=== PATIENT | female | born 1965 | race African-American/Black ===

== ENCOUNTER → 2018-08-01 | Outpatient (CLI) | payer OTHER ==
--- NOTE | 2018-08-02 09:09 | MM ---
Reason for exam: screening (asymptomatic). Last mammogram was performed 4 years and 11 months ago. History: Family history of breast cancer in mother at age 49. Benign right US cyst aspiration of the right breast, January 26, 2008. Benign US right core biopsy of the right breast, January 26, 2008. Physical Findings: A clinical breast exam by your physician is recommended on an annual basis and results should be correlated with mammographic findings. MG Screening Mammo w CAD Bilateral CC, MLO, and XCCL view(s) were taken. Prior study comparison: August 22, 2013, [facility] DIGITAL LEFT BREAST MAMMOGRAM w/CAD. August 16, 2013, bilateral digital screening mammo w/CAD. The breast tissue is heterogeneously dense. This may lower the sensitivity of mammography. There is no discrete abnormality. No significant changes when compared with prior studies. ASSESSMENT: Negative, BI-RAD 1 RECOMMENDATION: Routine screening mammogram of both breasts in 1 year.
== END | disposition home or self-care (01) ==
LOC: RADMAMWWP 10:53
PROVIDERS: ATTEND Family Medicine
DX: Z12.31 Encounter for screening mammogram for malignant neoplasm of breast (principal)
CPT/HCPCS: 77067

== ENCOUNTER → 2020-10-09 | Outpatient (CLI) | payer OTHER ==
[2020-10-09 14:15] VITALS: BP 134/87; PULSE 82; RESP 16; TEMP 98.1
--- NOTE | 2020-10-09 15:12 | P.PAINCN ---
History of Present Illness - Reason for Consult Consult date: 10/09/20 - History of Present Illness This is an initial consultation visit for this 55 years old female with a chronic history of severe low back pain started more than 5 years ago, the pain intensity increased over time and she reported that the pain localized in the low back area with radiation to the buttock bilaterally more prominent on the right side, slightly tilted to the right thigh area, the pain intensity increased with any activity interfere with the quality of life and activity of daily livings, she tried physical therapy , and medication management, all failed to help her back pain, is currently on NSAID, Lyrica, Ultram , Flexeril, and she continued to have severe pain, she feels some weakness in her right lower extremity, she denies any fever or night sweats which denies any change in the bowel movement or urination, she reported that her pain does not radiate below the knee, Past Medical History Past Medical History: Asthma Additional Past Medical History / Comment(s): lower back pain radiating down rt leg to foot and toes,current steroids History of Any Multi-Drug Resistant Organisms: None Reported Past Surgical History: Hysterectomy Additional Past Surgical History / Comment(s): partial hyst,pain clinic injections Past Anesthesia/Blood Transfusion Reactions: No Reported Reaction Additional Psychological History / Comment(s): claustrophobia Smoking Status: Current some day smoker Past Alcohol Use History: Occasional Additional Past Alcohol Use History / Comment(s): started smoking at age age 32 Past Drug Use History: None Reported - Past Family History Mother Family Medical History: Cancer Medications and Allergies Home Medications Medication Instructions Recorded Confirmed Type Acyclovir 800 mg PO TID PRN 10/08/20 10/08/20 History Albuterol Nebulized [Ventolin 2.5 mg INHALATION TID 10/08/20 10/08/20 History Nebulized] Albuterol Sulfate [Ventolin HFA] 1 - 2 puff INHALATION Q6H PRN 10/08/20 10/08/20 History Artificial Tears-Hypromellose 1 drops BOTH EYES DIRECTED PRN 10/08/20 10/08/20 History [Artificial Tear Drops] Budesonide/Formoterol Fumarate 2 puff INHALATION BID 10/08/20 10/08/20 History [Symbicort 160-4.5 Mcg Inhaler] Chlorhexidine Gluconate [Periogard] 15 ml PO BID 10/08/20 10/08/20 History Cyclobenzaprine HCl 10 mg PO HS PRN 10/08/20 10/08/20 History Famotidine [Pepcid] 20 mg PO BID 10/08/20 10/08/20 History Fluticasone Propionate [Flonase 1 - 2 spray EA NOSTRIL DAILY 10/08/20 10/08/20 History Allergy Relief] Ibuprofen 600 mg PO Q8H PRN 10/08/20 10/08/20 History Indapamide [Lozol] 2.5 mg PO DAILY 10/08/20 10/08/20 History Loratadine [Claritin] 10 mg PO DAILY 10/08/20 10/08/20 History Montelukast Sodium [Singulair] 10 mg PO HS 10/08/20 10/08/20 History Potassium Chloride [Klor-Con 10] 10 meq PO DAILY 10/08/20 10/08/20 History Pregabalin [Lyrica] 75 mg PO TID 10/08/20 10/08/20 History Low Iron 27mg Vitamin 1 tab PO DAILY 10/08/20 10/08/20 History Sodium Chloride [Saline Nasal 1 spray EA NOSTRIL DIRECTED PRN 10/08/20 10/08/20 History [place]] Triamcinolone Acetonide 1 applic TOPICAL BID PRN 10/08/20 10/08/20 History [Triamcinolone Acetonide 0.025%] predniSONE 0 mg PO DIRECTED 10/08/20 10/08/20 History traMADol HCl [Ultram] 50 mg PO Q8H PRN 10/08/20 10/08/20 History Meloxicam [Mobic] 7.5 mg PO BID 10/09/20 10/09/20 History Allergies Allergy/AdvReac Type Severity Reaction Status Date / Time Penicillins Allergy Nausea & Verified 10/07/20 15:53 Vomiting,itching Physical Exam Vitals: Vital Signs Temp Pulse Resp BP Pulse Ox 10/09/20 14:09 98.1 F 82 16 134/87 96 Physical Examinations : -Constitutiona : Cooperative , not in acute distress . -HEENT : nech : supple , no Lymphadenopathy , normal thyroid size . : eyes : no ptosis , no icterus, no photophobia . - neurologic : Cranial nerve II to XII intact , no focal neurological deffecit . -psychatric : alert , oriented X 3 , appropriate affect , intact judgment and insight . -Lymphatic : no Lymphadenopathy . - musculoskeltal : Lumber spine moter stegnth lower extremities ,thigh and legs 5/5 Right side , 5/5 Left side deep tendon reflexes : normal Knee Jerk , normal ankle Jerk lumber facet Loading Test =positive Right , positive Left Range of motion of the lumbar spine Flexion 30 degrees, extension 10 degrees strait leg raising test = positive at 30 degree on the right side, and is negative on the left side Fabere test= positive Right , and positive LT . Sever tenderness over the Sacroiliac joint on the Right , and Left sides Gaenslen test= positive right ,and positive left . Seated flexion test= positive right ,and positive Left . Distraction test= positive bilaterally Results Comments: MRI of the lumbar spine multilevel lumbar degenerative disc disease and multilevel lumbar facet degeneration and bilateral neural foraminal narrowing at L5-S1 Assessment and Plan Plan: Assessment and plan=1-bilateral sacroiliitis. 2-lumbar spondylosis with lumbar facet arthropathy. 3-lumbar degenerative disc disease. 4-lumbar foraminal stenosis at L5-S1. 5-with obesity recommend continue current medication Lyrica 75 mg 3 times a day, Ultram 50 mg every 8 hours when necessary, Flexeril 10 mg daily at bedtime, recommend discontinue Motrin and start patient on Mobic 7.5 mg twice a day. She could benefit from aquatic therapy. Patient could benefit from bilateral sacroiliac joint steroid injection under fluoroscopy guidance In the future patient could benefit from medial branch block and possible RFA Time with Patient: Greater than 30 PQRS Measure Charge Sheet Measure #130: Documentation of Current Meds in Medical Chart: Patient's medications documented in chart Measure #226: Tobacco Use: Screen & Cessation Intervention: Pt screened for tobacco use AND intervention given Measure #111: Pneumonia Vaccination: Pneumococcal vaccine NOT administered or previously given Measure #47: Advance Care Plan: Advance care planning discussed & documented, pt chose/unable to give Measure #412: Opioid Treatment Agreement: No documentation of signed opioid treatment agreement Measure #408: Opioid Therapy Follow-up Evaluation: Patient had NO f/u eval minimum every 3 months during opioid therapy Measure #317: Preventitive Care & Scrn High Bld Press & F/U: Normal blood pressure, f/u not required Measure #128: Body Mass Index (BMI) Screening & Follow-up: BMI documented ABOVE normal parameters - f/u documented Measure #131: Pain Assessment & Follow-up: Pain positive & plan documented, Follow-up scheduled Measure #431: Unhealthy Alcohol Use Preventative Care & Scrn: Patient not ident ified as an unhealthy alcohol user PQRS Narrative: Blood Pressure 134/87 Pain Intensity [Back] 7 Scale Used Numeric (1 - 10) Hx Alcohol Use (MH) Yes Home Medications: Ambulatory Orders Acyclovir 800 mg PO TID PRN 10/08/20 Albuterol Nebulized [Ventolin Nebulized] 2.5 mg INHALATION TID 10/08/20 Albuterol Sulfate [Ventolin HFA] 1 - 2 puff INHALATION Q6H PRN 10/08/20 Artificial Tears-Hypromellose [Artificial Tear Drops] 1 drops BOTH EYES DIRECTED PRN 10/08/20 Budesonide/Formoterol Fumarate [Symbicort 160-4.5 Mcg Inhaler] 2 puff INHALATION BID 10/08/20 Chlorhexidine Gluconate [Periogard] 15 ml PO BID 10/08/20 Cyclobenzaprine HCl 10 mg PO HS PRN 10/08/20 Famotidine [Pepcid] 20 mg PO BID 10/08/20 Fluticasone Propionate [Flonase Allergy Relief] 1 - 2 spray EA NOSTRIL DAILY 10/08/20 Ibuprofen 600 mg PO Q8H PRN 10/08/20 Indapamide [Lozol] 2.5 mg PO DAILY 10/08/20 Loratadine [Claritin] 10 mg PO DAILY 10/08/20 Montelukast Sodium [Singulair] 10 mg PO HS 10/08/20 Potassium Chloride [Klor-Con 10] 10 meq PO DAILY 10/08/20 Pregabalin [Lyrica] 75 mg PO TID 10/08/20 Low Iron 27mg Vitamin 1 tab PO DAILY 10/08/20 Sodium Chloride [Saline Nasal [place]] 1 spray EA NOSTRIL DIRECTED PRN 10/08/20 Triamcinolone Acetonide [Triamcinolone Acetonide 0.025%] 1 applic TOPICAL BID PRN 10/08/20 predniSONE 0 mg PO DIRECTED 10/08/20 traMADol HCl [Ultram] 50 mg PO Q8H PRN 10/08/20 Meloxicam [Mobic] 7.5 mg PO BID 10/09/20
== END ==
LOC: PNWHC3 13:47
PROVIDERS: ATTEND Specialist
DX: M46.1 Sacroiliitis, not elsewhere classified (principal); M47.816 Spondylosis without myelopathy or radiculopathy, lumbar region; M51.36 Other intervertebral disc degeneration, lumbar region; M48.061 Spinal stenosis, lumbar region without neurogenic claudication; E66.9 Obesity, unspecified; J45.909 Unspecified asthma, uncomplicated; F17.200 Nicotine dependence, unspecified, uncomplicated; Z88.0 Allergy status to penicillin; Z79.1 Long term (current) use of non-steroidal anti-inflammatories (NSAID); Z79.51 Long term (current) use of inhaled steroids; Z68.39 Body mass index [BMI] 39.0-39.9, adult
CPT/HCPCS: 99211

== ENCOUNTER 2020-12-03 12:45 | Day surgery (SDC) | payer OTHER ==
[2020-11-29 14:55] VITALS: BMI 40.6
[~2020-12-03 12:45] MED LIST: LACTATED RINGERS 1,000 ML IV SCH
[2020-12-03 13:07] VITALS: TEMP 98.3
[2020-12-03] MEDS ORDERED: ROPIVACAINE 5MG/ML 20ML VIAL ONE (13:30)
[2020-12-03] MEDS ORDERED: MIDAZOLAM 2 MG/2 ML VIAL ONE (13:30)
[2020-12-03] MEDS ORDERED: methylPREDNISolone ACETATE 40 MG/ML 1 ML VIAL ONE (13:30)
[2020-12-03] MEDS ORDERED: fentaNYL (PF) 50 MCG/ML 2 ML AMP ONE (13:30)
--- NOTE | 2020-12-03 13:43 | P.PCN ---
Date of Procedure: 12/03/20 Procedure(s) Performed: Procedure= bilateral sacroiliac joints steroid injection under fluoroscopy guidance (fluoroscopy image stored on file in the radiology Department ) Preoperative diagnosis= 1-bilateral sacroiliitis 2-lumbar degenerative disc disease 3-lumbar facet arthropathy Postoperative diagnosis=Same as preop Diagnosis . Complication = none Condition= stable Anesthesia= moderate sedation with intravenous Versed 2 mg , and fentanyl 50 micrograms . Indication for the procedure= patient complaining of low back pain , examination was positive for severe tenderness over the sacroiliac joints bilaterally and patient diagnosed with sacroiliitis, for this reason he/ she was good candidate for sacroiliac joint steroid injection. Description of the procedure= procedure risk and benefits discussed with the patient, including but not limited, risk of infection and bleeding, and ALLERGIC reaction to the medication and not complete pain relief and patient agreed with the preceding patient taken to the operating room, placed in prone position or standard monitors applied to the patient then after induction of anesthesia back prepped with chlorhexidine 3 times , Then under strict sterile technique, first I did the right sacroiliac joint the which was identified under fluoroscopy guidance been local infiltration of the skin and subcu interstitial with lidocaine 1% then 22-gauge 5 inches long Quincke Needle advanced slowly under fluoroscopy and placed in the right sacroiliac joint needle placement confirmed with AP and oblique and lateral view and after appropriate needle placement confirmed and after negative aspiration, or heme , then Ropivacaine 0.5% 4 mL, and 40 mg of Depo-Medrol mixed together and injected in the right sacroiliac joint after negative aspiration patient tolerated the procedure well without any complication. Then the left sacroiliac joint steroid injection done under strict sterile technique local infiltration of the skin and subcu interstitial at the location of the left sacroiliac joint then a 22-gauge Quincke Needle advanced slowly under fluoroscopy time placed in the left sacroiliac joint, needle placement confirmed with AP and oblique and lateral view then after appropriate needle placement confirmed and after negative aspiration 0.5% Ropivacaine 4 mL and 40 mg of Depo-Medrol injected in the left sacroiliac joint after negative aspiration patient tolerated the procedure well that any complications and she will follow up in clinic 3 weeks
[2020-12-03] MEDS ORDERED: IV FLUID CONTINUATION 1,000 ML IV ONE (13:50)
[2020-12-03 14:07] VITALS: BP 135/72; PULSE 76; RESP 16
--- NOTE | 2020-12-03 15:15 | FL ---
Fluoroscopy HISTORY: Pain 6 seconds fluoroscopy time supplied to the referring clinician. 2 intraoperative C-arm images docume nt the procedure. See dictated report from anesthesia.
== END 2020-12-03 14:31 | disposition home or self-care (01) ==
LOC: ORPAIN 12:45
PROVIDERS: ATTEND Specialist
DX: M46.1 Sacroiliitis, not elsewhere classified (principal)
CPT/HCPCS: 62322; G0260; J2250; J1030; J3010; J2795

== ENCOUNTER → 2021-01-29 | Outpatient (CLI) | payer OTHER ==
--- NOTE | 2021-01-29 14:51 | P.PN ---
Subjective Progress Note Date: 01/29/21 This is follow up visit for this 55 years old female with a chronic history of , sever back pain she is diagnosed with bilateral sacroiliitis and lumbar spondylosis, lumbar facet arthropathy and lumbar spinal stenosis, 2 months ago we did bilateral sacroiliac joint steroid injection which provided her with significant relief of her low back pain, currently she is complaining of severe low back pain , the pain localized in the low back area with radiation to the buttock bilaterally , is currently on NSAID, Lyrica, Ultram , Flexeril, and she continued to have severe pain, she feels some weakness in her right lower extremity, she denies any fever or night sweats which denies any change in the bowel movement or urination, she reported that her pain does not radiate below the knee, patient having difficulty walking, and she has difficulty using the bathroom because of her pain, and when she isn't in the bathroom she is not able to stand up, also she is having a hard time taking a shower because of her pain Physical Examinations : -Constitutiona : Cooperative , not in acute distress . -HEENT : nech : supple , no Lymphadenopathy , normal thyroid size . : eyes : no ptosis , no icterus, no photophobia . - neurologic : Cranial nerve II to XII intact , no focal neurological deffecit . -psychatric : alert , oriented X 3 , appropriate affect , in tact judgment and insight . -Lymphatic : no Lymphadenopathy . - musculoskeltal : Lumber spine moter stegnth lower extremities ,thigh and legs 5/5 Right side , 5/5 Left side deep tendon reflexes : normal Knee Jerk , normal ankle Jerk lumber facet Loading Test =positive Right , positive Left Range of motion of the lumbar spine Flexion 30 degrees, extension 10 degrees strait leg raising test = positive at 30 degree on the right side, and is negative on the left side Fabere test= positive Right , and positive LT . Sever tenderness over the Sacroiliac joint on the Right , and Left sides Gaenslen test= positive right ,and positive left . Seated flexion test= positive right ,and positive Left . Distraction test= positive bilaterally Results MRI of the lumbar spine multilevel lumbar degenerative disc disease and multile ana maria lumbar facet degeneration and bilateral neural foraminal narrowing at L5-S1 Assessment and plan=1-bilateral sacroiliitis. 2-lumbar spondylosis with lumbar facet arthropathy. 3-lumbar degenerative disc disease. 4-lumbar foraminal stenosis at L5-S1. 5-with obesity recommend continue current medication Lyrica 75 mg 3 times a day, Ultram 50 mg every 8 hours when necessary, Flexeril 10 mg daily at bedtime, recommend discontinue Motrin and start patient on Mobic 7.5 mg twice a day. She could benefit from aquatic therapy. Patient could benefit from repeate bilateral sacroiliac joint steroid injection under fluoroscopy guidance In the future patient could benefit from medial branch block and possible RFA Prescription for shower chair.given, also prescription for toilet lift could help her to take a shower and also stand up in the bathroom Time with Patient: less than 30 PQRS Measure Charge Sheet Measure #130: Documentation of Current Meds in Medical Chart: Patient's medications documented in chart Measure #226: Tobacco Use: Screen & Cessation Intervention: Pt screened for tobacco use AND intervention given Measure #111: Pneumonia Vaccination: Pneumococcal vaccine NOT administered or previously given Measure #47: Advance Care Plan: Advance care planning discussed & documented, pt chose/unable to give Measure #412: Opioid Treatment Agreement: No documentation of signed opioid treatment agreement Measure #408: Opioid Therapy Follow-up Evaluation: Patient had NO f/u eval minimum every 3 months during opioid therapy Measure #317: Preventitive Care & Scrn High Bld Press & F/U: Normal blood pressure, f/u not required Measure #128: Body Mass Index (BMI) Screening & Follow-up: BMI documented ABOVE normal parameters - f/u documented Measure #131: Pain Assessment & Follow-up: Pain positive & plan documented, Follow-up scheduled Measure #431: Unhealthy Alcohol Use Preventative Care & Scrn: Patient not identified as an unhealthy alcohol user PQRS Narrative:
[2021-01-29 14:59] VITALS: BP 137/95; PULSE 93; RESP 18; TEMP 98
== END ==
LOC: PNWHC3 14:15
PROVIDERS: ATTEND Specialist
DX: M46.1 Sacroiliitis, not elsewhere classified (principal); M47.816 Spondylosis without myelopathy or radiculopathy, lumbar region; M51.36 Other intervertebral disc degeneration, lumbar region; M48.061 Spinal stenosis, lumbar region without neurogenic claudication; E66.9 Obesity, unspecified; Z88.0 Allergy status to penicillin; Z68.41 Body mass index [BMI] 40.0-44.9, adult
CPT/HCPCS: 99211

== ENCOUNTER 2021-03-11 13:12 | Day surgery (SDC) | payer OTHER ==
[2021-03-11 13:46] VITALS: TEMP 97.6
[2021-03-11] MEDS ORDERED: IOPAMIDOL M200 10 ML VIAL ONE (13:53)
[2021-03-11] MEDS ORDERED: methylPREDNISolone ACETATE 40 MG/ML 1 ML VIAL ONE (13:53)
[2021-03-11] MEDS ORDERED: ROPIVACAINE 5MG/ML 20ML VIAL ONE (13:53)
--- NOTE | 2021-03-11 14:13 | P.PCN ---
Date of Procedure: 03/11/21 Procedure(s) Performed: Procedure= bilateral sacroiliac joints steroid injection under fluoroscopy guidance (fluoroscopy image stored on file in the radiology Department ) Preoperative diagnosis= 1-bilateral sacroiliitis 2-lumbar degenerative disc disease 3-lumbar facet arthropathy Postoperative diagnosis=Same as preop Diagnosis . Complication = none Condition= stable Anesthesia= ropivacaine 0.5% 6 mL for skin and subcutaneous tissue infiltration 3 mL at each side . Indication for the procedure= patient complaining of low back pain , examination was positive for severe tenderness over the sacroiliac joints bilaterally and patient diagnosed with sacroiliitis, for this reason he/ she was good candidate for sacroiliac joint steroid injection. Description of the procedure= procedure risk and benefits discussed with the patient, including but not limited, risk of infection and bleeding, and ALLERGIC reaction to the medication and not complete pain relief and patient agreed with the preceding patient taken to the operating room, placed in prone position or standard monitors applied to the patient then after induction of anesthesia back prepped with chlorhexidine 3 times , Then under strict sterile technique, first I did the right sacroiliac joint the which was identified under fluoroscopy guidance been local infiltration of the skin and subcu interstitial with ropivacaine 0.5% 3 and, then 22-gauge 5 inches long Quincke Needle advanced slowly under fluoroscopy and placed in the right sacroiliac joint needle placement confirmed with AP and oblique and lateral view and after appropriate needle placement confirmed and after negative aspiration, or heme , then Ropivacaine 0.5% 4 mL, and 40 mg of Depo-Medrol mixed together and injected in the right sacroiliac joint after negative aspiration patient tolerated the procedure well without any complication. Then the left sacroiliac joint steroid injection done under strict sterile technique local infiltration of the skin and subcu interstitial at the location of the left sacroiliac joint then a 22-gauge Quincke Needle advanced slowly under fluoroscopy time placed in the left sacroiliac joint, needle placement confirmed with AP and oblique and lateral view then after appropriate needle placement confirmed and after negative aspiration 0.5% Ropivacaine 4 mL and 40 mg of Depo-Medrol injected in the left sacroiliac joint after negative aspiration patient tolerated the procedure well that any complications and she will follow up in clinic 3 weeks
[2021-03-11 14:22] VITALS: RESP 18
[2021-03-11 14:37] VITALS: BP 118/78; PULSE 78
--- NOTE | 2021-03-11 14:58 | FL ---
Fluoroscopy HISTORY: Pain 10 seconds fluoroscopy time supplied to the referring clinician. 2 intraoperative C-arm images docum ent the procedure. See dictated report from anesthesia.
== END 2021-03-11 14:49 | disposition home or self-care (01) ==
LOC: ORPAIN 13:12
PROVIDERS: ATTEND Specialist
DX: M46.1 Sacroiliitis, not elsewhere classified (principal)
CPT/HCPCS: G0260; J1030; Q9966; J2795

== ENCOUNTER → 2021-05-26 | Outpatient (CLI) | payer OTHER ==
[2021-05-26 15:03] VITALS: BP 167/101; PULSE 101; RESP 18; TEMP 98.4
--- NOTE | 2021-05-26 15:03 | P.PN ---
Subjective Progress Note Date: 05/26/21 Principal diagnosis: A 56 yr old female with a history of severe and chronic low back pain secondary to lumbar degenerative disc diseases and lumbar spondylosis with facet arthropathy presents today for follow-up for second SI joint injection and evaluation for lower back pain. Patient states she has 70% pain relief for 2 months after her second SI joint injection. Pain level is currently at 8 out of 10 in the lower lumbar spine. It has been going on since 2013. Her goal is to reach a pain level of 1 out of 10. Pain is constant/ dull/ achy and sharp/ shooting towards the right hip, groin and thigh. Pain is provoked by prolonged sitting or walking. 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 Pain is alleviated with medications, topicals, injections, ice, heat, chiropractic treatments for a limited period of time as her physician discontinued them, home exercise regimen, aquatherapy and rest. Interventional pain procedures completed include SI joint injections x 2. Patient is currently on Tramadol, Lyrica, Ibuprofen Patient denies any side effects of the medication(s), denies excessive drowsiness or sleepiness, denies suicidal ideation and reports that the current pain medication is helping to control the pain and improve activities of daily living. Patient denies any motor or sensory deficits. Patient denies any fever or night sweats, denies any change in the bowel movements or urination. Physical Examination: -Constitutional: Cooperative. Not in acute distress . -HEENT: Neck is supple. No lymphadenopathy. No thyromegaly. Normal thyroid size. Eyes: No ptosis , no icterus, no photophobia. ENT: No auditory deficits. Normal oropharynx. No Thrush. - Respiratory: Chest clear to auscultations bilaterally. No wheezing. No rhonchi. - Cardiovascular: Regular rate and rhythm. S1 / S2 , no S3 , no S4. - Gastrointestinal: Abdomen soft no tenderness. Bowel sounds positive in all four quadrants. No organomegaly. - Genitourinary: Deferred. - Neurologic: Cranial nerve II to XII intact. No focal neurological deficits. - Psychatric: Alert & oriented x 3. Matching mood & appropriate affect. Judgment and insight intact. - Lymphatic: No Lymphadenopathy. - Musculoskeletal: Cervical spine: Muscle bulk/ tone/ strength in the bilateral upper extremities normal. Facet loading test cervical area positive. Lumbar spine: Motor bulk/ tone/ strength lower extremities , thigh and legs : 5/5 Deep tendon reflexes : Normal Knee Jerk. Normal Ankle Jerk . Lumbar Facet Loading Test positive over bilateral L4-S1 Straight Leg Raise: positive at 30 degree right side/ left side Raúl test: positive right side / left side Range of motion: Flexion of the lumbar spine <75 degrees Range of motion: Extension of the lumbar spine <20 degrees Severe tenderness over the Sacroiliac joint: right side / left side Assessment and plan: Chronic low back pain secondary to lumbar degenerative disc disease , lumbar spondylosis with facet arthropathy without myelopathy Recommendation of right facet block medial branch of the L4-L5 and L5-S1 May need a second procedure based on amount of pain relief May need to follow-up with an RF A for sufficient pain relief Risks and benefits of the procedure discussed and patient verbalized understanding Discontinue ibuprofen 3 days prior to procedure All patient questions answered MAPS reviewed and it was appropriate. I have spent 31 minutes on patient care today. Dr Tolentino was available by phone for the evaluation of this patient. The time was used to review the medical records including relevant urine studies and Prescription history (MAPs), review of the available imaging, evaluation and examination of the patient, coordination of care with the medical staff and if applicable referring physicians, as well as creation of the medical record PQRS Measure Charge Sheet PQRS Narrative: Pain Intensity [Back] 7 Hx Alcohol Use (MH) Yes Home Medications: Ambulatory Orders Acyclovir 800 mg PO TID PRN 10/08/20 Albuterol Nebulized [Ventolin Nebulized] 2.5 mg INHALATION TID PRN 10/08/20 Albuterol Sulfate [Ventolin HFA] 1 - 2 puff INHALATION Q6H PRN 10/08/20 Artificial Tears-Hypromellose [Artificial Tear Drops] 1 drops BOTH EYES DIRECTED PRN 10/08/20 Budesonide/Formoterol Fumarate [Symbicort 160-4.5 Mcg Inhaler] 2 puff INHALATION BID 10/08/20 Chlorhexidine Gluconate [Periogard] 15 ml PO BID PRN 10/08/20 Cyclobenzaprine HCl 10 mg PO HS PRN 10/08/20 Famotidine [Pepcid] 20 mg PO BID PRN 10/08/20 Fluticasone Propionate [Flonase Allergy Relief] 1 - 2 spray EA NOSTRIL DAILY 10/08/20 Ibuprofen 600 mg PO Q8H PRN 10/08/20 Indapamide [Lozol] 2.5 mg PO DAILY 10/08/20 Loratadine [Claritin] 10 mg PO DAILY PRN 10/08/20 Montelukast Sodium [Singulair] 10 mg PO HS 10/08/20 Potassium Chloride [Klor-Con 10] 10 meq PO DAILY 10/08/20 Pregabalin [Lyrica] 75 mg PO TID 10/08/20 Low Iron 27mg Vitamin 1 tab PO DAILY 10/08/20 Sodium Chloride [Saline Nasal Bronson] 1 spray EA NOSTRIL DIRECTED PRN 10/08/20 Triamcinolone Acetonide [Triamcinolone Acetonide 0.025%] 1 applic TOPICAL BID PRN 10/08/20 traMADol HCl [Ultram] 50 mg PO Q8H PRN 10/08/20 Meloxicam [Mobic] 7.5 mg PO BID 10/09/20
== END ==
LOC: PNWHC3 13:50
PROVIDERS: ATTEND Physician Assistant Medical
DX: G89.29 Other chronic pain (principal); M51.36 Other intervertebral disc degeneration, lumbar region; M47.816 Spondylosis without myelopathy or radiculopathy, lumbar region; Z88.0 Allergy status to penicillin
CPT/HCPCS: 99211

== ENCOUNTER → 2023-11-02 | Outpatient (CLI) | payer MEDICARE, OTHER ==
--- NOTE | 2023-11-11 07:31 | MM ---
Reason for Exam: Screening (asymptomatic). Last mammogram was performed 5 year(s) and 3 month(s) ago. Patient History: Menarche at age 15. First Full-Term at age 31. Right ovary removed at age 46. Hysterectomy at age 46. 01/26/2008, Benign Core Biopsy on the right side. 01/26/2008, Benign Cyst Aspiration on the right side. Mother had breast cancer, age 49. Risk Values: Dasha 5 year model risk: 2.2%. NCI Lifetime model risk: 12.0%. Prior Study Comparison: 08/16/2013 Bilateral Screening Mammogram, [facility]. 08/22/2013 Left Diagnostic Mammogram, [facility]. 08/01/2018 Bilateral Screening Mammogram, [facility]. Tissue Density: There are scattered areas of fibroglandular density. Findings: Analyzed By CAD. The pattern is symmetrical. No significant interval change is evident. Core markers are right breast. No suspicious groups of microcalcifications, spiculated or lobular masses, architectural distortion or other secondary signs of malignancy are mammographically apparent. Overall Assessment: Benign, BI-RAD 2 Management: Screening Mammogram of both breasts in 1 year. A negative mammogram report should not preclude additional follow up of suspicious palpable abnormalities. Patient should continue monthly self breast exam. A clinical breast exam by your physician is recommended on an annual basis and results should be correlated with mammographic findings. Note on Dasha scores and lifetime risk: 1. A Dasha score greater than 3% is considered moderate risk. If this is the case, consider specialist referral to assess eligibility for a risk reducing agent. 2. If overall lifetime risk for the development of breast cancer is 20% or higher, the patient may qualify for future screening with alternating mammogram and breast MRI. Electronically signed and approved by: Esau Guillen D.O. Radiologis
== END | disposition home or self-care (01) ==
LOC: RADMAMWWP 14:07
PROVIDERS: ATTEND Family Medicine
DX: Z12.31 Encounter for screening mammogram for malignant neoplasm of breast (principal); R92.323 Mammographic fibroglandular density, bilateral breasts; Z80.3 Family history of malignant neoplasm of breast
CPT/HCPCS: 77063; 77067

== ENCOUNTER → 2023-11-02 | Outpatient (CLI) | payer MEDICARE, OTHER ==
--- NOTE | 2023-11-02 16:31 | US ---
EXAMINATION TYPE: US venous doppler duplex LE RT DATE OF EXAM: 11/02/2023 2:37 PM COMPARISON: NONE CLINICAL INDICATION: Female, 58 years old with history of R22.40 LOCALIZED SWELLING, LOWER LIMB; Righ t leg swelling SIDE PERFORMED: Right TECHNIQUE: The lower extremity deep venous system is examined utilizing real time linear array sonog mike with graded compression, doppler sonography and color-flow sonography. VESSELS IMAGED: Common Femoral Vein Deep Femoral Vein Greater Saphenous Vein * Femoral Vein Popliteal Vein Small Saphenous Vein * Proximal Calf Veins (* superficial vessels) Right Leg: Appears negative for DVT IMPRESSION: Grayscale, color doppler, spectral doppler imaging performed of the deep veins of the lo wer extremities. There is normal flow, compressibility, vascular waveforms.
== END | disposition home or self-care (01) ==
LOC: RADUSWWP 14:05
PROVIDERS: ATTEND Family Medicine
DX: R22.41 Localized swelling, mass and lump, right lower limb (principal)